=== PATIENT | female | born 1985 | race Caucasian/White ===

== ENCOUNTER 2021-03-24 15:55 | Outpatient (RCR) | payer OTHER, SELFPAY ==
[2021-02-22 16:55] VITALS: BP 130/75
[2021-03-18 13:51] VITALS: BP 117/66; PULSE 75
--- NOTE | ~2021-03-24 | US_ITS ---
US OB BPP wo non-stress DATE: 02/22/2021 16:45 INDICATION: decelerations TECHNIQUE: Real-time imaging and Doppler analysis COMPARISON: None FINDINGS: Live single intrauterine gestation, fetus in longitudinal lie, vertex presentation. h eart rate of 115 bpm. Normal amount of amniotic fluid by subjective assessment. Anterior placenta. BIOPHYSICAL PROFILE reported by graphic art technician: breathin out of 2 movement: 2 out of 2 tone: 2 out of 2 Amniotic fluid pocket: 2 out of 2 Total score: 8 out of 8 IMPRESSION: Normal biophysical profile score of 8 out of 8 Reviewed, dictated and finalized at [facility]. Reviewed, dictated and finalized at [facility].
[2021-03-24 16:21] VITALS: BP 119/72; PULSE 69
== END 2021-04-07 08:52 | disposition home or self-care (01) ==
LOC: ANHOBOP 15:55
PROVIDERS: Visit Provider Student in an Organized Health Care Education/Training Program
DX: O36.8330 Maternal care for abnormalities of the fetal heart rate or rhythm, third trimester, not applicable or unspecified (principal); Z3A.34 34 weeks gestation of pregnancy; Z3A.37 37 weeks gestation of pregnancy; Z3A.38 38 weeks gestation of pregnancy
CPT/HCPCS: 59025; 76819

== ENCOUNTER 2021-04-06 16:58 | Inpatient (IN) | payer OTHER, SELFPAY ==
[2021-04-06] VITALS (14 sets, daily range): BP systolic 114–136; BP diastolic 66–90; PULSE 57–84; BMI 33.5
--- NOTE | 2021-04-06 17:20 | LDADM ---
This patient, Abhilash Pierce, was admitted to Labor/Delivery/Recovery 102 on 04/06/21 at 16:58. Plans for labor, pain management and were discussed with patient. Patient/family oriented to hospital policies and general routines including ID bracelet, bed and alarms, visiting hours, pain management, procedures, bathroom and other care routines, personal items, smoking policy, room service/diet and guest tray routines, infant security routines, and visiting hours. Patient/Family are encouraged to report perceived risks to care and to ask questions if they do not understand what they are told or what they should do. See OBIX for further documentation.
[2021-04-06 17:32] LABS: Basophils Percent Auto 0.3 % (0.2-1.2); Eosinophils Percent Auto 0.4 % (0-4.4); Hematocrit 39.9 % (37.0-47.0); Hemoglobin 13.4 g/dL (12.0-15.0); Immature Granulocyte Absolute 0.07 K/mm3 (0.00-0.031); Immature Granulocyte Percent A 0.6 % (0-0.5); Lymphocytes Absolute Auto 1.86 K/mm3 (0.9-3.2); Lymphocytes Percent Auto 16.5 % (18.3-44.2); Mean Corpuscular HGB Conc 33.6 g/dl (32-36); Mean Corpuscular Hemoglobin 30.3 pg (26-34); Mean Corpuscular Volume 90.3 fl (80-100); Mean Platelet Volume 12.6 fl (7.4-10.4); Monocytes Absolute Auto 1.1 K/mm3 (0.1-0.6); Monocytes Percent Auto 9.4 % (2.6-8.5); Neutrophils Absolute Auto 8.2 K/mm3 (1.3-6.7); Neutrophils Percent Auto 72.8 % (45.5-73.1); Platelet Count Result 175 k/mm3 (150-375); Red Blood Count 4.42 M/mm3 (4.2-5.4); Red Cell Distribution Width 13.1 % (11.5-14.5); White Blood Count 11.3 K/mm3 (4.5-10.0)
[2021-04-06] MEDS: DINOPROSTONE 10 MG VAG INSERT VAGINAL (17:52)
--- NOTE | 2021-04-06 22:35 | PM.IMHP ---
H&P: HPI History of Present Illness Date/Time: 04/06/21 22:35 Patient is a 35yo with an uncertain LMP currently 40w1d gestation with ANNIKA 04/05/21. Patient is dated by US on 08/18/20 at 7w gestation. Patient presents to L&D for scheduled elective IOL. She reports feeling well today. Denies any vaginal bleeding, leakage of fluid, or contractions. Reports good movement. Chief Complaint: Induction of labor Review of Systems Review of Systems: All systems reviewed & are unremarkable except as noted in HPI and below Constitutional: Constitutional: Reports as per HPI, Reports no additional constitutional complaints, Denies chills, Denies fever(s), Denies headache(s) and Denies night sweats Eyes: Eyes: Reports as per HPI and Reports no additional eye complaints ENT: Reports system reviewed and no additional complaints, except as documented, Reports as per HPI, Reports Normal hearing present and Denies headache(s) Cardiovascular: Cardiovascular: Reports as per HPI, Reports no additional cardiovascular complaints, Denies chest pain and Denies dyspnea Respiratory: Respiratory: Reports as per HPI, Reports no additional respiratory complaints, Denies cough and Denies dyspnea Gastrointestinal: Gastrointestinal: Reports as per HPI, Reports no additional gastrointestinal complaints, Denies abdominal pain, Denies change in bowel habits, Denies change in stool character, Denies nausea and Denies vomiting Genitourinary: Genitourinary: Reports no additional female genitourinary complaints, Reports as per HPI, Denies abnormal vaginal bleeding, Denies genital lesions, Denies hot flashes, Denies dyspareunia, Denies pelvic pain, Denies sexual dysfunction, Denies urinary incontinence, Denies vaginal discharge, Denies vaginal dryness and Denies vaginal odor Musculoskeletal: Musculoskeletal: Reports no additional musculoskeletal complaints and Reports as per HPI Integumentary/Breasts: Skin/Breast: Reports system reviewed and no additional complaints, except as docu, Reports as per HPI, Denies breast pain and Denies nipple discharge Neurologic: Reports system reviewed and no additional complaints, except as documented, Reports as per HPI, Reports Normal hearing present and Denies headache(s) Psychiatric: Psychiatric: Reports no additional psychiatric complaints, Reports as per HPI, Denies anxiety and Denies depression Endocrine: Endocrine: Reports no additional endocrine complaints and Reports as per HPI Hematologic/Lymphatic: Hematologic/Lymphatic: Reports no additional hematologic/lymphatic complaints and Reports as per HPI Allergic/Immunologic: Allergic/Immunologic: Reports no additional allergic/immunologic complaints and Reports as per HPI [facility] Past Medical History Medical History (Updated 04/06/21 @ 22:41 by Jessica Duran MD) Polycystic ovary syndrome Spontaneous vaginal delivery Family History Family History Grandparent Diabetes mellitus Hypertension Cerebrovascular accident Mother Hypertension High cholesterol Social History Social History Smoking status: Never smoker Second hand tobacco smoke exposure: No Alcohol intake: never Substance use: unknown Spiritual care concerns: No Meds Home Medications and Allergies Home Medications Medication Instructions Recorded Confirmed Type vitamins no.119-iron 1 tablet PO DAILY 08/13/20 04/06/21 History fumarate 29 mg-folic acid 1 mg tablet cholecalciferol (vitamin D3) 50 50 mcg PO DAILY 10/14/20 04/06/21 History mcg (2,000 unit) capsule Allergies Allergy/AdvReac Type Severity Reaction Status Date / Time No Known Allergies Allergy Verified 04/06/21 09:08 Vital Signs Vital Signs - 24 hr 04/06/21 17:30 04/06/21 18:00 04/06/21 18:15 Pulse Rate 74 68 69 Blood Pressure 129/88 122/73 120/78 04/06/21 18:30 04/06/21 18:45
--- NOTE | 2021-04-06 22:43 | WPDHPUPDATE1 ---
History and Physical Update Update Date/Time: 04/06/21 22:43 History and Physical has been reviewed, including an updated exam of the patient. There are NO changes in the patient's condition. Risks, benefits, and alternatives have been discussed and questions answered. Patient agrees to proceed with procedure.
[2021-04-07] VITALS (43 sets, daily range): BP systolic 66–167; BP diastolic 19–135; PULSE 52–223; RESP 16–18; TEMP 36.1–37; O2SAT 75–100
[2021-04-07] MEDS: LACTATED RINGERS 1,000 ML 125 ML IV CONT ×2 (00:16→02:17)
[2021-04-07] MEDS: AMPICILLIN 2 GM/NS 100 ML 2 GM/100 ML BAG IVPB (00:16)
[2021-04-07] MEDS: fentaNYL CITRATE INJ (*CRX) 100 MCG/2 ML VIAL 50 MCG IV PUSH ×2 (00:17→01:32)
--- NOTE | 2021-04-07 02:08 | WPDANESEPP ---
Anes - Eval Pre Procedure Procedure: Labor epidural Date/Time: 04/07/21 02:08 Surgeon: rosemary Preop Diagnosis: Abd pain with contractions Pre Op Diagnosis: iol Patient Data Age: 35 Gender: F Height: 1.73 m Weight: 100 kg Last Vital Signs Pulse 67 04/07/21 02:00 BP 135/85 04/07/21 02:00 Allergies Allergy/AdvReac Type Severity Reaction Status Date / Time No Known Allergies Allergy Verified 04/06/21 09:08 Home Medications Medication Instructions Recorded Confirmed Type vitamins no.119-iron 1 tablet PO DAILY 08/13/20 04/06/21 History fumarate 29 mg-folic acid 1 mg tablet cholecalciferol (vitamin D3) 50 50 mcg PO DAILY 10/14/20 04/06/21 History mcg (2,000 unit) capsule Laboratory Tests 04/06/21 04/06/21 04/06/21 17:19 17:19 17:19 WBC 11.3 K/mm3 H K/mm3 (4.5-10.0) RBC 4.42 M/mm3 M/mm3 (4.2-5.4) Hgb 13.4 g/dL g/dL (12.0-15.0) Hct 39.9 % % (37.0-47.0) MCV 90.3 fl fl (80-100) MCH 30.3 pg pg (26-34) MCHC 33.6 g/dl g/dl (32-36) RDW 13.1 % % (11.5-14.5) Plt Count 175 k/mm3 k/mm3 (150-375) MPV 12.6 fl H fl (7.4-10.4) Immature Gran % (Auto) 0.6 % H % (0-0.5) Neut % (Auto) 72.8 % % (45.5-73.1) Lymph % (Auto) 16.5 % L % (18.3-44.2) [place] % (Auto) 9.4 % H % (2.6-8.5) Eos % (Auto) 0.4 % % (0-4.4) Baso % (Auto) 0.3 % % (0.2-1.2) Lymph # (Auto) 1.86 K/mm3 K/mm3 (0.9-3.2) [place] # (Auto) 1.1 K/mm3 H K/mm3 (0.1-0.6) Eos # (Auto) 0.0 K/mm3 K/mm3 (0-0.3) Baso # (Auto) 0.0 K/mm3 K/mm3 (0.0-0.1) Abs Immat Gran (auto) 0.07 K/mm3 H K/mm3 (0.00-0.031) Absolute Neuts (auto) 8.2 K/mm3 H K/mm3 (1.3-6.7) Absolute Nucleated RBC 0.0 K/mm3 K/mm3 (0.0-0.012) Nucleated RBC % 0.0 % % (0.0-0.2) RPR Pending Blood Type O Positive Antibody Screen Negative Patient hx anesthesia problems: none Family hx anesthesia problems: none [facility] Past Medical History Medical History Polycystic ovary syndrome and not yet delivered Spontaneous vaginal delivery Family History Family History Grandparent Diabetes mellitus Hypertension Cerebrovascular accident Mother Hypertension High cholesterol Social History Social History Smoking status: Never smoker Second hand tobacco smoke exposure: No Alcohol intake: never Substance use: unknown Spiritual care concerns: No Exam Day of Procedure 04/07/21 02:08 Patient weight: overweight Heart: regular rate and rhythm Airway: Mallampati scale Neurological: alert and oriented
[2021-04-07] MEDS: OXYTOCIN 30 UNITS/NS 500 ML 30 UNITS/500 ML BAG 125 UNITS IV CONT ×2 (03:11→03:44)
--- NOTE | 2021-04-07 03:33 | PM.OBPRVD ---
OB - Delivery Note Procedure Delivery date: 04/07/21 Procedure: The patient is a 35-year-old now who presented to labor and delivery on the evening of 04/06/2021 at 40 weeks and 1 day gestation for scheduled elective induction of labor. Induction of labor was begun with Cervidil. Initial cervical exam was 1 cm dilated. Patient progressed into active labor with Cervidil in place and made quick cervical change. She was started on antibiotics for GBS prophylaxis. She became uncomfortable and requested an epidural for pain management, which was placed without difficulty. At 2:45 a.m., patient experienced spontaneous rupture of membranes. Clear amniotic fluid was noted. Patient was also noted to be fully dilated at same time. Patient was encouraged to push and found to be pushing well. She was prepped and draped for delivery. At 3:03 a.m., patient delivered head in LYNN presentation. Occiput restituted to maternal right side. Infant head was delivered atraumatically and without difficulty. With subsequent push, the 's neck, shoulders, and rest of body also delivered without difficulty. Terminal meconium was noted. Infant was crying spontaneously. 's nose and mouth were suctioned with bulb suction. Infant was placed on maternal abdomen where care was assumed by awaiting nursing staff. Delayed cord clamping was performed for approximately 60 seconds. The cord was clamped and cut. A segment of cord was collected for cord gases. Cord blood was collected. The placenta was delivered spontaneously and intact. Uterine fundus was noted to be firm with massage. On inspection, a first-degree perineal laceration was noted. This laceration was repaired with 2-0 and 3-0 Vicryl in the usual fashion. Excellent hemostasis was noted. The was a live born female infant, Apgars 8 and 9, weighing 7 lb 13 oz. Estimated blood loss for entire delivery was 200 cc. Both mother and baby doing well at end of delivery. events: Labor Induction Induction method: per cervidil protocol Delivery monitor: external FHT and external uterine Route of delivery: Laceration Description: Perineal - 1st Degree Delivery repair: vicryl (2-0 and 3-0) Specimen: Yes (cord blood and cord gases) Quantitative Blood Loss (ml): 200 Anesthesia type: Epidural Disposition: floor Complications: no immediate complications Baby Date of : 04/07/21 Time of : 03:03 Weeks of gestation at delivery: 40 (40.2) gender: Female Weight (pounds): 7 Weight (ounces): 13 presentation: vertex position: Right Occiput Anterior Placenta delivery description: Spontaneous cord vessel description: 3 Vessels and Delayed Cord Clamping (60s) score one minute: 8 score five minutes: 9
--- NOTE | 2021-04-07 06:57 | PC.NURSE ---
Patient transferred to post room #290 per wheelchair from labor and delivery. Support person present. Oriented to unit, room, information board, rooming in, admission packet and security measures. Patient verbalizes understanding.
--- NOTE | 2021-04-07 08:40 | PC.NURSE ---
Mother called out for assist with feeding reporting is sleepy. Mother breastfed first child for 1 year without issue. is able to freely thrust tongue past gum ridge and flange both lips. Skin is intact on both nipples, no redness and bruising noted. Reviewed infant feeding cues, frequencies, duration of feedings, feeding elimination flow sheet, and signs of adequate intake. Demonstrated stimulation techniques to wake infant for feeding. Assisted with infant to breast. Reviewed positioning/alignment in cross cradle, holding breast in ?U? hold and guided asymmetrical latch on. Discussed rational for each. able to latch correctly. Infant nursed eagerly, with steady draws and frequent swallowing noted. Suggested mother stimulate while feeding to increase stimulate, increase intake and to assist with maintaining deep latch. Reviewed signs of a correct latch, effective nursing and suck swallow ratio. Infant would slip to shallow latch, mother reports tenderness. Demonstrated how to adjust latch more deeply while feeding. Mother reports she can feel change in latch and has no tenderness. Nipple care reviewed of lanolin after feedings, warm compresses as needed. Instructed mother to call out for RN assistance if she is unable to latch for feeding or she has discomfort with nursing.
[2021-04-07 09:06] LABS: Rapid Plasma Reagin Non-Reactive (NonReactive)
[2021-04-07] MEDS: MULTIVIT/MIN/PREN/FOL AC/IRON TABLET 1 TAB PO (09:16)
[2021-04-07] MEDS: IBUPROFEN 600 MG TABLET PO ×2 (10:46→17:05)
[2021-04-08] VITALS: BP 135/84; PULSE 76; RESP 16; TEMP 36.6; O2SAT 99
[2021-04-08] MEDS: IBUPROFEN 600 MG TABLET PO ×2 (03:43→12:21)
[2021-04-08 05:22] LABS: Hematocrit 37.9 % (37.0-47.0); Hemoglobin 12.5 g/dL (12.0-15.0)
--- NOTE | 2021-04-08 08:13 | WPDANLDPN2 ---
Anes-Prog Note L&D Date/Time: 04/08/21 08:13 Comfortable throughout: labor and delivery Neuraxial method: epidural Epidural/Spinal procedure site: clean & non-tender Neuro status: Neuro function grossly intact. Cardiovascular status: normal Respiratory status: normal Airway patency: baseline Mental status: baseline Post-Op hydration status: normal Vital Signs: Last Vital Signs Temp 36.6 C 04/08/21 00:00 Pulse 76 04/08/21 00:00 Resp 16 04/08/21 00:00 BP 135/84 04/08/21 00:00 Pulse Ox 99 04/08/21 00:00 Pain score (VAS): 0 Post-procedural complaints: none Patient feedback: Patient satisfied with anesthetic care.
[2021-04-08] MEDS: MULTIVIT/MIN/PREN/FOL AC/IRON TABLET 1 TAB PO (08:30)
[2021-04-08 08:35] VITALS: BP 116/73; PULSE 55; RESP 16; TEMP 36.6; O2SAT 100
--- NOTE | 2021-04-08 09:09 | PM.OBPNVD ---
OB - PN: Subj Subjective Date/time seen: 04/08/21 09:09 Patient doing well this AM. Pain well controlled with medication. Minimal lochia. Ambulating well. OB - PN: Obj Data Labs CBC & Chem 7: 04/08/21 03:40 Labs: Laboratory Results - last 24 hr 04/08/21 03:40 Hgb 12.5 Hct 37.9 OB - PN A/P Assessment and Plan (1) Normal spontaneous vaginal delivery: Code(s): O80 - Encounter for full-term uncomplicated delivery Status: Acute Assessment and Plan: PPD#1 doing well continue routine care possible dc home today, pending infant clearance Time Spent With Patient Time: Total time spent is greater than 50% in coordination of care (as documented) at patient's floor/unit and/or counseling patient: Exam Const: General: cooperative, healthy appearing, comfortable and no acute distress GI: GI Palp: Yes Soft to palpation and No Tenderness to palpation present (GI) Other: fundus firm below umbilicus Extrem: Right lower extremity: no edema Left lower extremity: no edema Other: no calf tenderness
[2021-04-08] MEDS: WITCH HAZEL 40 PADS 1 PAD TOPICAL (12:20)
[2021-04-08 20:00] VITALS: BP 130/73; PULSE 63; RESP 16; TEMP 36.2; O2SAT 100; O2SAT 98
[2021-04-09] MEDS: IBUPROFEN 600 MG TABLET PO (05:16)
[2021-04-09] MEDS: MULTIVIT/MIN/PREN/FOL AC/IRON TABLET 1 TAB PO (08:09)
[2021-04-09 08:10] VITALS: BP 124/79; PULSE 55; RESP 16; TEMP 36.3; O2SAT 100
--- NOTE | 2021-04-09 09:01 | PM.OBPNVD ---
OB - PN: Subj Subjective Date/time seen: 04/09/21 09:01 Patient doing well. Pain well controlled. Minimal lochia. Ambulating without difficulty. Voiding well. Baby well. No issues with . OB - PN: Obj Data Labs CBC & Chem 7: 04/08/21 03:40 OB - PN A/P Assessment and Plan (1) Normal spontaneous vaginal delivery: Code(s): O80 - Encounter for full-term uncomplicated delivery Status: Acute Assessment and Plan: PPD#2 doing well discharge home in stable condition emergency precautions reviewed Time Spent With Patient Time: Total time spent is greater than 50% in coordination of care (as documented) at patient's floor/unit and/or counseling patient: Exam Const: General: cooperative, healthy appearing, comfortable and no acute distress GI: GI Palp: Yes Soft to palpation and No Tenderness to palpation present (GI) Other: fundus firm below umbilicus Extrem: Right lower extremity: no edema Left lower extremity: no edema Other: no calf tenderness
--- NOTE | 2021-04-09 09:03 | P.DS_ITS ---
DS: Admitting Diagnosis Admitting Diagnosis induction of labor DS: Summary Hospital Course Hospital Course: uncomplicated Time Spent with Patient Time attestation: Total time spent providing and/or coordinating discharge services: Discharge Plan Discharge Attending physician on discharge: Jessica Duran Discharging Clinician: Jessica Duran Anticipated Discharge Date/Time: 04/09/21 09:03 Patient Disposition: Home, Self-Care Activity: as tolerated and pelvic rest Diet: regular Discharge Instructions: Call office ([phone]) to schedule a visit in 4-6 weeks. You may take Ibuprofen 600mg every 6 hours as needed for pain. Pain medication may make you constipated. It may be helpful to take an [id number]-[id number]-[id number] stool softener, such as Colace and/or Senokot, along with the pain medication to help lessen constipation. Call office or go to ED for pain not controlled with medication, headache, chest pain, shortness of breath, fever, chills, persistent nausea or vomiting, severe abdominal pain, heavy vaginal bleeding >2 pads/hour, foul vaginal discharge or odor, or problems with your breasts. 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
[2021-04-11 11:03] VITALS: BP 135/76; PULSE 64; RESP 16; TEMP 37.1; O2SAT 99
== END 2021-04-09 12:35 | disposition home or self-care (01) | DRG 807 ==
LOC: ANHLDR 17:01 → ANHOB2 04-07 07:01
PROVIDERS: Admitting Provider Student in an Organized Health Care Education/Training Program; Visit Provider Student in an Organized Health Care Education/Training Program
DX: O99.824 Streptococcus B carrier state complicating childbirth (principal); Z37.0 Single live birth; Z3A.40 40 weeks gestation of pregnancy; O70.0 First degree perineal laceration during delivery; O99.284 Endocrine, nutritional and metabolic diseases complicating childbirth; E28.2 Polycystic ovarian syndrome; O77.0 Labor and delivery complicated by meconium in amniotic fluid
CPT/HCPCS: 36415; 85014; 85018; 85025; 86592; 86850; 86900; 86901; A9270; J0290; J2590; J2795; J3010; J7120